=== PATIENT | female | born 1950 | race Caucasian/White ===

== ENCOUNTER → 2017-01-05 09:41 | Outpatient (CLI) | payer MEDICARE, OTHER | LOC: D.MAMMO 12-28 11:30 | DX: Z12.31 Encounter for screening mammogram for malignant neoplasm of breast (principal) ==

== ENCOUNTER 2018-01-15 19:00 | Outpatient (CLI) | payer MEDICARE, OTHER | END 2018-01-15 23:59 | disposition home or self-care (01) | LOC: D.MAMMO 19:00 | DX: Z12.31 Encounter for screening mammogram for malignant neoplasm of breast (principal) ==

== ENCOUNTER 2019-10-04 23:00 | Outpatient (CLI) | payer MEDICARE, OTHER | END 2019-10-04 23:59 | disposition home or self-care (01) | LOC: D.MAMMO 23:00 | PROVIDERS: ATTEND Nurse Practitioner | DX: Z12.31 Encounter for screening mammogram for malignant neoplasm of breast (principal) ==